=== PATIENT | female | born 1980 | race Hispanic/Latino ===

== ENCOUNTER 2019-04-30 09:07 | Emergency (ER) | payer SELFPAY ==
[2019-04-30] MEDS ORDERED: FAMOTIDINE 20 MG/2 ML VIAL IV ONE (10:56)
[2019-04-30] MEDS ORDERED: ONDANSETRON 4 MG/2 ML VIAL ONE (10:56)
[2019-04-30] MEDS ORDERED: NA CHLORIDE 0.9% 1,000 ML ONE (10:56)
[2019-04-30 11:19] LABS: Hematocrit 36.6 % (36.0-45.0); RBC Red Blood Cell Count 4.11 M/uL (3.86-4.86)
[2019-04-30 11:20] LABS: Absolute Lymphocytes (CBC) 2.1 K/uL (0.7-4.9); Basophils % 0.7 % (0-1.3); MPV 10.7 fL (7.6-11.3)
--- NOTE | 2019-04-30 11:22 | RAD REPORT ---
EXAM DESCRIPTION: RAD - Chest Single View - 04/30/2019 10:58 am CLINICAL HISTORY: COUGH Chest pain. COMPARISON: Chest Single View dated 01/03/2017 FINDINGS: Portable technique limits examination quality. The lungs are grossly clear. The heart is normal in size. No displaced fractures. IMPRESSION: No acute intrathoracic process suspected.
[2019-04-30 11:30] LABS: Albumin 3.8 g/dL (3.4-5.0); Bilirubin Direct 0.1 mg/dL (0-0.2); Bilirubin Total 0.2 mg/dL (0.2-1.0); Potassium 3.3 mmol/L (3.5-5.1); Protein, Total 7.3 g/dL (6.4-8.2)
--- NOTE | 2019-04-30 11:41 | RAD REPORT ---
EXAM DESCRIPTION: CT - Stone Protocol - 04/30/2019 11:26 am CLINICAL HISTORY: Chills, low back pain, abdominal pain COMPARISON: None. TECHNIQUE: Axial 5 mm thick images were obtained without oral or IV contrast. The [id number] span s the entirety of the system including uppermost abdomen and lung bases. All CT scans are performed using dose optimization technique as appropriate and may include automated exposure control or mA/KV adjustment according to patient size. FINDINGS: No hydronephrosis is identifiable. No obstructing or nonobstructing calculi seen. Patient has numerous phleboliths in the pelvis none of which are convincing for distal ureteral calculi. No s uspicious renal masses. Isodense masses and pyelonephritis are not excluded on a stone protocol CT sc an. Well filled urinary bladder shows no suspicious finding. No adrenal abnormalities. Uterus is glenda ated to the right by the well filled urinary bladder. Ovaries are not clearly distinguishable from th e adjacent on opacified bowel. The patient has limited intraperitoneal fat in the pelvis. Imaged portions of the liver, spleen and pancreas show no suspicious findings on non-contrast imaging . No gallbladder or biliary tree abnormality identified. Gallstones can be occult on CT imaging. No dilated bowel loops or bowel wall thickening. Moderate stool volume fills the colon. Appendicitis is not suspected. An acute GI process is not seen. No hernia, mass or bulky lymphadenopathy noted. No free air, free fluid or inflammatory stranding. No significant bony abnormality. IMPRESSION: No hydronephrosis or obstructing calculus. No acute GI finding identifiable. Isodense masses and pyelonephritis are not excluded on stone protocol technique. No acute GI process seen. Ovaries are not clearly distinguishable from the adjacent non-opacified bow el loops.
--- NOTE | 2019-04-30 11:49 | EDPHYS ---
Physician Documentation [facility] Name: Cherri Hobson Age: 39 yrs Sex: Female : 1980 Arrival Date: 04/30/2019 Time: 09:09 Bed 18 Private MD: ED Physician Kev Ferrari HPI: 04/30 10:40 This 39 yrs old Female presents to ER via Ambulatory with complaints of antione Abdominal Pain, Back Pain, Nausea. 10:40 The patient presents with pain that is acute. The symptoms are located in the low back. antione Onset: The symptoms/episode began/occurred 2 day(s) ago. The pain does not radiate. Associated signs and symptoms: The patient has no apparent associated signs or symptoms. Modifying factors: The patient symptoms are alleviated by nothing, the patient symptoms are aggravated by nothing. Severity of symptoms: At their worst the symptoms were mild, in the emergency department the symptoms are unchanged. The patient has experienced similar episodes in the past. Historical: - Home Meds: :18 levothyroxine oral [Active]; lisinopril Oral [Active]; Singulair Oral [Active]; hb - PMHx: :18 Hypertension; Hypothyroidism; hb - PSHx: :18 ; hb - Immunization history:: Adult Immunizations up to date. - Social history:: Smoking status: Patient/guardian denies using tobacco. - Ebola Screening: : No symptoms or risks identified at this time. - Family history:: not pertinent. ROS: 10:40 Constitutional: Negative for fever, chills, and weight loss, Eyes: Negative for injury, antione pain, redness, and discharge, ENT: Negative for injury, pain, and discharge, Neck: Negative for injury, pain, and swelling, Cardiovascular: Negative for chest pain, palpitations, and edema, Respiratory: Negative for shortness of breath, cough, wheezing, and pleuritic chest pain, Back: Negative for injury and pain, : Negative for injury, bleeding, discharge, and swelling, MS/Extremity: Negative for injury and deformity, Skin: Negative for injury, rash, and discoloration, Neuro: Negative for headache, weakness, numbness, tingling, and seizure, Psych: Negative for depression, anxiety, suicide ideation, homicidal ideation, and hallucinations, Allergy/Immunology: Negative for hives, rash, and allergies, Endocrine: Negative for neck swelling, polydipsia, polyuria, polyphagia, and marked weight changes, Hematologic/Lymphatic: Negative for swollen nodes, abnormal bleeding, and unusual bruising. 10:40 Abdomen/GI: Positive for abdominal pain, nausea, vomiting. Exam: 10:40 Constitutional: This is a well developed, well nourished patient who is awake, alert, antione and in no acute distress. Head/Face: Normocephalic, atraumatic. Eyes: Pupils equal round and reactive to light, extra-ocular motions intact. Lids and lashes normal. Conjunctiva and sclera are non-icteric and not injected. Cornea within normal limits. Periorbital areas with no swelling, redness, or edema. ENT: Nares patent. No nasal discharge, no septal abnormalities noted. Tympanic membranes are normal and external auditory canals are clear. Oropharynx with no redness, swelling, or masses, exudates, or evidence of obstruction, uvula midline. Mucous membranes moist. Neck: Trachea midline, no thyromegaly or masses palpated, and no cervical lymphadenopathy. Supple, full range of motion without nuchal rigidity, or vertebral point tenderness. No Meningismus. Chest/axilla: Normal chest wall appearance and motion. Nontender with no deformity. No lesions are appreciated. Cardiovascular: Regular rate and rhythm with a normal S1 and S2. No gallops, murmurs, or rubs. Normal PMI, no JVD. No pulse deficits. Respiratory: Lungs have equal breath sounds bilaterally, clear to auscultation and percussion. No rales, rhonchi or wheezes noted. No increased work of breathing, no retractions or nasal flaring. Back: No spinal tenderness. No costovertebral tenderness. Full range of motion. Skin: Warm, dry with normal turgor. Normal color with no rashes, no lesions, and no evidence of cellulitis. MS/ Extremity: Pulses equal, no cyanosis. Neurovascular intact. Full, normal range of motion. Neuro: Awake and alert, GCS 15, oriented to person, place, time, and situation. Cranial nerves II-XII grossly intact. Motor strength 5/5 in all extremities. Sensory grossly intact. Cerebellar exam normal. Normal gait. Psych: Awake, alert, with orientation to person, place and time. Behavior, mood, and affect are within normal limits. 10:40 Abdomen/GI: Inspection: abdomen appears normal, Bowel sounds: normal, Palpation: mild abdominal tenderness, in the right upper quadrant, left upper quadrant, right lower quadrant and left lower quadrant, Liver: no appreciated palpable abnormalities, Hernia: not appreciated. Vital Signs: 09:18 BP 140 / 94; Pulse 92; Resp 16; Temp 98.4; Pulse Ox 100% ; Weight 61.69 kg; Height 5 hb ft. 2 in. (157.48 cm); Pain 5/10; 10:00 BP 120 / 79; Pulse 76; Resp 18; Pulse Ox 99% on R/A; aj1 11:00 BP 113 / 68; Pulse 68; Resp 18; Pulse Ox 100% ; aj1 12:00 BP 133 / 73; Pulse 71; Resp 16; Pulse Ox 100% on R/A; aj1 09:18 Body Mass Index 24.87 (61.69 kg, 157.48 cm) hb MDM: 09:26 Patient medically screened. [facility] 10:43 Data reviewed: vital signs, nurses notes, lab test result(s), radiologic studies, CT antione scan, plain films. 04/30 10:40 Order name: Basic Metabolic Panel; Complete Time: 11:43 [facility] 04/30 10:40 Order name: CBC with Diff; Complete Time: 11:43 [facility] 04/30 10:40 Order name: Creatinine for Radiology; Complete Time: 11:43 [facility] 04/30 10:40 Order name: Hepatic Function; Complete Time: 11:43 [facility] 04/30 10:40 Order name: Lipase; Complete Time: 11:43 [facility] 04/30 10:40 Order name: Urine Culture [facility] 04/30 10:40 Order name: CT Stone Protocol; Complete Time: 11:43 [facility] 04/30 10:40 Order name: Chest Single View XRAY; Complete Time: 11:43 [facility] 04/30 11:17 Order name: Urine Dipstick--Ancillary (enter results) 04/30 11:17 Order name: Urine --Ancillary (enter results) 04/30 10:40 Order name: IV Saline Lock; Complete Time: 11:32 [facility] 04/30 10:40 Order name: Labs collected and sent; Complete Time: 11:32 [facility] 04/30 10:40 Order name: Urine Dipstick-Ancillary (obtain specimen); Complete Time: 11:32 [facility] 04/30 10:40 Order name: Urine Test (obtain specimen); Complete Time: 11:32 [facility] Administered Medications: 11:38 Drug: NS 0.9% 1000 ml Route: IV; Rate: 1 bolus; Site: right antecubital; aj1 12:42 Follow up: IV Status: Completed infusion; IV Intake: 1000ml [facility] 11:38 Drug: Zofran 4 mg Route: IVP; Site: right antecubital; aj1 12:43 Follow up: Response: No adverse reaction aj1 11:38 Drug: Pepcid 20 mg Route: IVP; Site: right antecubital; aj1 12:43 Follow up: Response: No adverse reaction [facility] 12:41 Drug: Potassium Effervescent Tablet 25 mEq Route: PO; aj1 12:43 Follow up: Response: No adverse reaction 1 Disposition: 04/30/19 11:48 Discharged to Home. Impression: Abdominal tenderness, Vomiting, Hypokalemia. - Condition is Stable. - Discharge Instructions: Abdominal Pain, Adult, Potassium Content of Foods, Nausea and Vomiting, Adult, Nausea and Vomiting, Adult, Ipsp-kv-Gfxj, Abdominal Pain, Adult, Cttw-cm-Nada, Hypokalemia. - Prescriptions for Bentyl 20 mg Oral Tablet - take 1 tablet by ORAL route every 6 hours As needed; 20 tablet. Pepcid 20 mg Oral Tablet - take 1 tablet by ORAL route every 12 hours for 10 days; 20 tablet. Zofran 4 mg Oral Tablet - take 1 tablet by ORAL route every 12 hours As needed; 20 tablet. - Medication Reconciliation Form, Thank You Letter, Antibiotic Education, Prescription Opioid Use form. - Follow up: Private Physician; When: 2 - 3 days; Reason: Recheck today's complaints, Continuance of care, Re-evaluation by your physician. - Problem is new. - Symptoms have improved. Signatures: Dispatcher [employer] Yulissa Fuentes RN RN aj1 Kev Ferrari MD MD cha Baxter, Heather, RN RN Corrections: (The following items were deleted from the chart) 12:47 11:48 04/30/2019 11:48 Discharged to Home. Impression: Abdominal tenderness; Vomiting; aj1 Hypokalemia. Condition is Stable. Discharge Instructions: Abdominal Pain, Adult, Nausea and Vomiting, Adult, Nausea and Vomiting, Adult, Llxo-po-Vlvb, Abdominal Pain, Adult, Syag-ow-Yfib. Prescriptions for Bentyl 20 mg Oral Tablet - take 1 tablet by ORAL route every 6 hours As needed; 20 tablet, Pepcid 20 mg Oral Tablet - take 1 tablet by ORAL route every 12 hours for 10 days; 20 tablet, Zofran 4 mg Oral Tablet - take 1 tablet by ORAL route every 12 hours As needed; 20 tablet. and Forms are Medication Reconciliation Form, Thank You Letter, Antibiotic Education, Prescription Opioid Use. Follow up: Private Physician; When: 2 - 3 days; Reason: Recheck today's complaints, Continuance of care, Re-evaluation by your physician. Problem is new. Symptoms have improved. antione
--- NOTE | 2019-04-30 11:49 | ER ---
Nurse's Notes [facility] Name: Cherri Hobson Age: 39 yrs Sex: Female : 1980 Arrival Date: 04/30/2019 Time: 09:09 Bed 18 Private MD: Diagnosis: Abdominal tenderness;Vomiting;Hypokalemia Presentation: 04/30 09:16 Presenting complaint: Sinus congestion, headache, chills, low back pain, and abdominal hb pain x 2 days. Transition of care: patient was not received from another setting of care. Onset of symptoms was April 29, 2019. Risk Assessment: Do you want to hurt yourself or someone else? Patient reports no desire to harm self or others. Initial Sepsis Screen: Does the patient meet any 2 criteria? No. Patient's initial sepsis screen is negative. Does the patient have a suspected source of infection? No. Patient's initial sepsis screen is negative. Care prior to arrival: None. 09:16 Method Of Arrival: Ambulatory hb 09:16 Acuity: PATRICIA 3 hb Historical: - Home Meds: 09:18 levothyroxine oral [Active]; lisinopril Oral [Active]; Singulair Oral [Active]; hb - PMHx: 09:18 Hypertension; Hypothyroidism; hb - PSHx: 09:18 ; hb - Immunization history:: Adult Immunizations up to date. - Social history:: Smoking status: Patient/guardian denies using tobacco. - Ebola Screening: : No symptoms or risks identified at this time. - Family history:: not pertinent. Screenin:18 Abuse screen: Denies threats or abuse. Denies injuries from another. Nutritional hb screening: No deficits noted. Tuberculosis screening: No symptoms or risk factors identified. Fall Risk None identified. Assessment: 09:17 General: Appears in no apparent distress. uncomfortable, Behavior is calm, cooperative, da2 appropriate for age, Smells of Reports chills for 1-2 days, Denies. Pain: Complains of pain in head, abdomen, lower back Pain currently is 5 out of 10 on a pain scale. Quality of pain is described as throbbing, Pain began 1 day ago. Neuro: Level of Consciousness is awake, alert, obeys commands, Oriented to person, place, time. Cardiovascular: Patient's skin is warm and dry. Respiratory: Airway is patent. GI: Bowel sounds present X 4 quads. Abd is soft and non tender. EENT: Reports nasal congestion since Monday. 10:30 General: Appears in no apparent distress. uncomfortable, Behavior is cooperative, aj1 anxious, Reports chills for 1-2 days. Pain: Complains of pain in low back area and abdomen. Neuro: Level of Consciousness is awake, alert, obeys commands, Oriented to person, place, time, situation, Reports headache. Cardiovascular: Patient's skin is warm and dry. Respiratory: Airway is patent Respiratory effort is even, unlabored, Respiratory pattern is regular, symmetrical. GI: Abdomen is non-distended, Bowel sounds present X 4 quads. Abd is soft and non tender X 4 quads. Reports nausea. : No signs and/or symptoms were reported regarding the genitourinary system. : No signs and/or symptoms were reported regarding the genitourinary system. EENT: Reports nasal congestion nasal discharge. Derm: No signs and/or symptoms reported regarding the dermatologic system. Skin is pink, warm \T\ dry. normal. Musculoskeletal: No signs and/or symptoms reported regarding the musculoskeletal system. Circulation, motion, and sensation intact. 11:30 Reassessment: Patient appears in no apparent distress at this time. No changes from aj1 previously documented assessment. Patient and/or family updated on plan of care and expected duration. Pain level reassessed. Patient is alert, oriented x 3, equal unlabored respirations, skin warm/dry/pink. 12:30 Reassessment: Patient appears in no apparent distress at this time. No changes from aj1 previously documented assessment. Patient and/or family updated on plan of care and expected duration. Pain level reassessed. Patient is alert, oriented x 3, equal unlabored respirations, skin warm/dry/pink. Vital Signs: 09:18 BP 140 / 94; Pulse 92; Resp 16; Temp 98.4; Pulse Ox 100% ; Weight 61.69 kg; Height 5 hb ft. 2 in. (157.48 cm); Pain 5/10; 10:00 BP 120 / 79; Pulse 76; Resp 18; Pulse Ox 99% on R/A; aj1 11:00 BP 113 / 68; Pulse 68; Resp 18; Pulse Ox 100% ; aj1 12:00 BP 133 / 73; Pulse 71; Resp 16; Pulse Ox 100% on R/A; aj1 09:18 Body Mass Index 24.87 (61.69 kg, 157.48 cm) hb ED Course: 09:09 Patient arrived in ED. as 09:17 Triage completed. hb 09:18 Arm band placed on. hb 09:18 Patient has correct armband on for positive identification. Bed in low position. Call hb light in reach. 09:26 Kev Ferrari MD is Attending Physician. antione 10:00 Report received from BEN Alba. aj1 10:02 Yulissa Villalba, RN is Primary Nurse. aj1 11:00 Chest Single View XRAY In Process Unspecified. EDMS 11:05 Initial lab(s) drawn, by me, sent to lab. Inserted saline lock: 22 gauge in right kj1 antecubital area, using aseptic technique. Blood collected. 11:26 CT Stone Protocol In Process Unspecified. EDMS 12:45 No provider procedures requiring assistance completed. IV discontinued, intact, aj1 bleeding controlled, No redness/swelling at site. Pressure dressing applied. Administered Medications: 11:38 Drug: NS 0.9% 1000 ml Route: IV; Rate: 1 bolus; Site: right antecubital; aj1 12:42 Follow up: IV Status: Completed infusion; IV Intake: 1000ml aj1 11:38 Drug: Zofran 4 mg Route: IVP; Site: right antecubital; aj1 12:43 Follow up: Response: No adverse reaction aj1 11:38 Drug: Pepcid 20 mg Route: IVP; Site: right antecubital; aj1 12:43 Follow up: Response: No adverse reaction aj1 12:41 Drug: Potassium Effervescent Tablet 25 mEq Route: PO; aj1 12:43 Follow up: Response: No adverse reaction aj1 Intake: 12:42 IV: 1000ml; Total: 1000ml. aj1 Outcome: 11:48 Discharge ordered by . antione 12:46 Discharged to home ambulatory. aj1 12:46 Condition: good 12:46 Discharge instructions given to patient, Instructed on discharge instructions, follow up and referral plans. medication usage, Demonstrated understanding of instructions, follow-up care, medications, Prescriptions given X 3. 12:47 Patient left the ED. aj1 Signatures: Dispatcher [employer] EDMS Yulissa Villalba RN RN aj1 Kev Ferrari MD MD cha Martinez, Amelia as Baxter, Heather, RN RN Denae Stephen1 Parth Stauffer RN RN da2
[2019-04-30] MEDS ORDERED: POTASSIUM 25 MEQ EFFERV TAB ONE (12:13)
[2019-04-30 12:36] LABS: Urine Blood NEGATIVE (NEG); Urine Glucose NEGATIVE (NEG); Urine Protein NEGATIVE (NEG); Urine pH 5.5 (5.0-7.0)
[2019-04-30 12:53] VITALS: TEMP 98.4
[2019-04-30 12:56] VITALS: O2SAT 100
[2019-04-30 12:57] VITALS: BP 133/73
== END 2019-04-30 12:47 | disposition home or self-care (01) ==
LOC: ER 09:07
DX: R11.10 Vomiting, unspecified (principal); E87.6 Hypokalemia; I10 Essential (primary) hypertension; E03.9 Hypothyroidism, unspecified
CPT/HCPCS: 36415; 71045; 74176; 76377; 80048; 80076; 81003; 81025; 83690; 85025; 87086; 87088; 96361; 96374; 96375; 99284; J2405; J7030